=== PATIENT | female | born 1955 | race Two or more races ===

== ENCOUNTER 2023-02-15 21:00 | Emergency (ER) | payer MEDICARE, OTHER ==
[~2023-02-15] VITALS: Ht 154.9 cm; Wt 99.8 kg
--- NOTE | 2023-02-15 21:20 | NUR ---
BIBFAMILY. BRIGHT RED RECTAL BLEED W/ ABDOMINAL PAIN W/ NAUSEA X 1 WEEK. AXO4 AMBULATORY. NO RESPIRATORY DISTRESS OR SOB
[2023-02-15 21:51] LABS: BASOPHILS % (AUTO) 0.5 % (0.0-2.0); EOSINOPHILS % (AUTO) 2.3 % (0.0-6.0); HEMATOCRIT 41 % (33-45); HEMOGLOBIN 13.3 g/dL (11.5-14.8); LYMPHOCYTES # (AUTO) 2.9 K/uL (0.8-4.8); LYMPHOCYTES % (AUTO) 33.1 % (20.0-44.0); MEAN CORPUSCULAR HGB CONC 32 g/dl (31.0-36.0); MEAN CORPUSCULAR VOLUME 87 fL (82-100); MONOCYTES # (AUTO) 0.5 K/uL (0.1-1.30); MONOCYTES % (AUTO) 5.7 % (2.0-12.0); NEUTROPHILS # (AUTO) 5.1 K/uL (1.8-8.9); NEUTROPHILS % (AUTO) 58.4 % (43.0-81.0); RED BLOOD CELL COUNT(AUTO) 4.73 MIL/uL (4.0-5.2); WHITE BLOOD COUNT (AUTO) 8.7 K/uL (4.3-11.0)
[2023-02-15 22:09] LABS: ALBUMIN 3.5 g/dL (3.4-5.0); BILIRUBIN,DIRECT 0.1 mg/dL (0.0-0.2); BILIRUBIN,TOTAL 0.4 mg/dL (0.2-1.0); CALCIUM, SERUM 9.1 mg/dL (8.5-10.1); CREATININE 0.6 mg/dL (0.6-1.3); POTASSIUM 3.9 mmol/L (3.5-5.1); TOTAL PROTEIN, SERUM 7.5 g/dL (6.4-8.2)
[2023-02-15 22:25] LABS: BILIRUBIN,URINE 1+ (NEGATIVE); COLOR,URINE YELLOW (YELLOW); LEUKOCYTE ESTERASE ,URINE TRACE (NEGATIVE); NITRITE, URINE NEGATIVE (NEGATIVE); PH,URINE 5.5 (5.0-8.0); PROTEIN,URINE TRACE mg/dl (NEGATIVE); UGLUCOSE NEGATIVE (NEGATIVE); UROBILINOGEN,URINE 0.2 EU/dL (0.2)
[2023-02-15 22:28] LABS: BACTERIA,URINE 1+ /HPF (None Seen); RBC,URINE 0-2 /HPF (0-2); SQUAMOUS EPITHELIAL CELL,UR 21-50 /HPF (None Seen)
[2023-02-15 22:29] LABS: MUCUS,URINE Few /LPF (None Seen)
[2023-02-15 22:31] LABS: PLATELET COUNT (AUTO) 252 K/uL (150-450)
[2023-02-15] MEDS ORDERED: CEFTRIAXONE 1GM BAG (ER ONLY) 50 ML IV ONE (22:59)
[2023-02-15] MEDS ORDERED: CEFTRIAXONE 1GM BAG (ER ONLY) 1 GM/50 ML PIGGYBACK IV ONE (23:00)
[2023-02-15] MEDS ORDERED: IV NS 0.9% 1,000 ML BAG IV ONE (23:00)
[2023-02-15 23:01] LABS: OCCULT BLOOD STOOL POSITIVE (NEGATIVE)
[2023-02-15] MEDS ORDERED: POLY119P2 PO (23:35)
[2023-02-15] MEDS ORDERED: CEPH500T PO (23:35)
[2023-02-15] MEDS ORDERED: HYDR25SU33 RC (23:35)
[2023-02-16 00:39] VITALS: BP 137/66
--- NOTE | 2023-02-16 00:40 | NUR ---
Patient discharged to home in stable condition. Written and verbal after care instructions given. Patient verbalizes understanding of instruction.IV removed. Catheter intact and site benign. Pressure and 4x4 applied to site. No bleeding noted.
== END 2023-02-16 00:41 | disposition home or self-care (01) ==
LOC: ER 21:04
DX: K64.9 Unspecified hemorrhoids (principal); N39.0 Urinary tract infection, site not specified; I10 Essential (primary) hypertension; Z79.899 Other long term (current) drug therapy
CPT/HCPCS: 99285; 74176; 96365; 93005; 85025; 80048; 83690; 80076; 82272; 81001; 36415; J0696